=== PATIENT | female | born 1945 | race Caucasian/White ===

== ENCOUNTER 2022-08-04 10:42 | Emergency (ER) | payer MEDICARE, SELFPAY ==
[2022-08-04] VITALS (8 sets, daily range): BP systolic 103–114; BP diastolic 44–66; PULSE 65–100; RESP 16–25; TEMP 36.6–37.3; O2SAT 95–99; BMI 23.8
--- NOTE | 2022-08-04 11:27 | RAD_ITS ---
STUDY: X-RAY CHEST REASON FOR EXAM: Female, 77 years old. Fever and weakness. TECHNIQUE: PA and lateral views of the chest. COMPARISON: None. FINDINGS: Hyperinflation. Scattered calcified granulomas. There is no demonstrated pleural abnormality. Normal size heart. Normal mediastinum and quentin. Normal visualized pulmonary arteries. Normal visualized aortic arch and descending thoracic aorta. There is demineralization of the osseous structures. There is degenerative osteoarthritis of the bilateral shoulders. Matrix calcification seen overlying the right humeral neck. Moderate-sized hiatal hernia. RAD/Chest PA and Lateral IMPRESSION: Hyperinflation. Moderate-sized hiatal hernia. Images calcification seen overlying the surgical neck of the proximal right humerus. Electronically Signed: Minor Hurtado MD at 12:38 EDT ,
--- NOTE | 2022-08-04 11:59 | EDS_ITS ---
HPI History of Present Illness Chief Complaint: General Illness Informant: patient and family Onset/Context/Timing Onset: Days (5) Context: Gradual Onset Timing: Continuous Quality: Aching Location: Generalized Worsened by: Nothing Relieved by: Nothing Narrative Narrative: Patient presents with nausea, vomiting, and generalized aching that has been getting worse over the past 5 days. Patient states nothing seems to make it better nothing makes it worse. Patient states she was exposed to influenza recently. Patient states several other family members have had influenza recently. Patient admits to a fever of 100.3 at home. Patient states she has been unable to keep anything down. Family also noted a rash around her eyes that has gotten worse today. Patient denies any blurry vision or double vision. Patient denies any headaches. PFSH PFSH Medical History no medical history no medical history Home Medications amoxicillin 875 mg-potassium clavulanate 125 mg tablet 1 tab PO Q12H 08/04/22 [History Last Taken Unknown] sulfamethoxazole 800 mg-trimethoprim 160 mg tablet (Bactrim DS) 1 tab PO BID 08/04/22 [History Last Taken Unknown] Allergy/AdvReac Type Severity Reaction Status Date / Time Pork/Porcine Containing Allergy Angioedema Verified 08/04/22 11:07 Products Surgical History History of delivery Social History Smoking Status: Never smoker ROS ROS ED Constitutional Constitutional ED: Reports chills and fever(s) Eyes Eyes: Denies blurry vision or change in vision ENT ENT ED: Denies rhinorrhea or sore throat Cardiovascular Cardiovascular: Denies chest pain or palpitations Respiratory/Chest Respiratory/Chest: Denies cough or dyspnea Gastrointestinal Gastrointestinal: Reports nausea and vomiting Genitourinary Genitourinary ED: Denies dysuria or hematuria Musculoskeletal Musculoskeletal: Denies back pain or neck pain Integumentary Reports rash; Denies abscess Neurologic Neurologic: Denies headache(s) or weakness Allergic/Immunologic Allergic/Immunologic ED: Denies mouth swelling or urticaria EXAM Physical Exam Const Vital Signs: 08/04/22 10:43 08/04/22 11:10 08/04/22 11:15 Temperature 97.8 F 99.1 F Temperature Source Temporal Oral Pulse Rate 89 65 Respiratory Rate 16 18 Respiratory Effort Normal Non-Labored Respiratory Pattern Normal Blood Pressure 103/66 114/58 L Blood Pressure Mean 78 76 Pulse Ox 99 95 Oxygen Delivery Method Room Air Room Air 08/04/22 12:11 08/04/22 13:17 08/04/22 13:17 Temperature 98.5 F 98.5 F 98.5 F Temperature Source Oral Oral Oral Pulse Rate 79 71 71 Respiratory Rate 25 H 16 16 Respiratory Effort Respiratory Pattern Blood Pressure 114/44 L 108/59 L 108/59 L Blood Pressure Mean 67 75 75 Pulse Ox 98 97 97 Oxygen Delivery Method Room Air Room Air Room Air 08/04/22 14:03 08/04/22 14:07 Temperature 98.6 F Temperature Source Oral Pulse Rate 73 73 Respiratory Rate 16 16 Respiratory Effort Respiratory Pattern Blood Pressure 113/63 113/63 Blood Pressure Mean 79 79 Pulse Ox 95 95 Oxygen Delivery Method Room Air Room Air Positive well nourished and well developed General Appearance ED: well developed and NAD HEENT Reports dry mucous membranes Mouth ED: Yes dry mucous membranes Mouth: dry mucous membranes Neck supple and no JVD Resp normal respiratory effort and clear to auscultation bilaterally Cardio regular rate, regular rhythm and no murmurs GI normal to inspection, nondistended, normoactive bowel sounds and non-tender Palpation: soft Extremity normal to inspection General Extremety ED: Negative for edema or tenderness General Extremity: Negative for edema Neuro oriented x3, CN's II-XII intact bilaterally and no sensory deficits noted Sensorium / Orientation: alert Motor Exam: strength 5/5 throughout Psych mental status grossly normal Skin Skin Narrative: There is an erythematous macular rash in the periorbital areas bilaterally. There is mild warmth. There is no discharge or drainage. There are no vesicles or pustules noted. It is blanchable. There are no petechia noted. There is no involvement of the mucous membranes. MDM MDM MDM Narrative Medical decision making narrative: Differential diagnosis includes viral illness, influenza, COVID, periorbital cellulitis, orbital cellulitis, urinary tract infection, and electrolyte abnormality. CBC will be obtained to assess for leukocytosis and anemia. Basic metabolic profile will be obtained to assess for renal function and electrolyte abnormality. Urinalysis will be obtained to assess for urinary tract infection. Chest x-ray will be obtained to assess for pneumonia. COVID-19 rapid antigen will be obtained to assess for COVID-19 infection. Influenza A and influenza B antigens will be obtained to assess for influenza infection. Lab Data Attestation: I reviewed the patient's lab results. Lab results narrative: CBC was reviewed. There is a mild leukocytosis of 11.4. The remainder was within normal limits. Basic metabolic profile was reviewed. BUN was slightly elevated at 22 and creatinine was slightly elevated at 1.08. Urinalysis was reviewed. There is no evidence of urinary tract infection or hematuria. Urine ketones were 150. Labs: Laboratory Results - last 24 hr 08/04/22 08/04/22 08/04/22 11:56 11:56 13:39 WBC 11.4 H RBC 4.17 L Hgb 12.6 Hct 38.7 MCV 92.8 MCH 30.2 MCHC 32.6 RDW Std Deviation 44.3 H RDW Coeff of [place] 13.1 Plt Count 382 MPV 9.8 Immature Gran % (Auto) 0.400 Neut % (Auto) 74.9 H Lymph % (Auto) 11.6 L [place] % (Auto) 10.8 H Eos % (Auto) 1.9 Baso % (Auto) 0.4 Absolute Neuts (auto) 8.6 H Absolute Lymphs (auto) 1.32 Nucleated RBC % 0 Sodium 135 L Potassium 4.1 Chloride 102 Carbon Dioxide 23.0 Anion Gap 10 BUN 22 H Creatinine 1.08 H Estim Creat Clear Calc 36.66 Est GFR (MDRD) Af Amer 63 Est GFR (MDRD) Non-Af 52 L BUN/Creatinine Ratio 20.4 H Glucose 100 Calcium 9.3 Urine Color Yellow Urine Clarity Sl. Cloudy Urine pH 5.0 Ur Specific [place] 1.025 Urine Protein 30 H Urine Glucose (UA) Normal Urine Ketones 150 A* Urine Occult Blood 25 H Urine Nitrite Negative Urine Bilirubin Negative Urine Urobilinogen 4 H Ur Leukocyte Esterase 25 H Urine RBC 0-5 SEEN Urine WBC 0-5 SEEN Ur Squamous Epith Cells 0-5 SEEN Urine Bacteria 1+ Urine Mucus 0 SEEN Radiography Diagnostic Testing: Clinical Impression(s) from Imaging Studies Chest X-Ray 08/04/22 11:27 IMPRESSION: Hyperinflation. Moderate-sized hiatal hernia. Images calcification seen overlying the surgical neck of the proximal right humerus. Electronically Signed: Minor Hurtado MD at 12:38 EDT , PA and lateral chest x-ray was obtained. There are 2 views. On my independent interpretation, lung gómez are clear. There is normal cardiac silhouette. Bony thorax is normal. There is no acute process noted. Radiologist also interpreted the x-ray and agrees. Treatment and Re-Evaluation :: Patient was given IV fluids and Zofran here. Patient is feeling better on reevaluation. Patient was instructed to start with small amounts of liquids more frequently. Patient was instructed to advance her diet as tolerated. Patient was given a prescription for Zofran. Patient was instructed to follow- up with her primary care physician in 5 to 7 days. Patient and family understand and are agreeable with the plan. All questions were answered. Discharge Plan Triage Chief Complaint: General Illness ED Provider: Camilo Galaviz Dx/Rx/DC Orders Clinical Impression: Dehydration, Nausea and vomiting Instructions: ED Dehydration (Adult), ED Vomiting (Adult) Prescriptions: No Action sulfamethoxazole-trimethoprim [Bactrim DS] 800-160 mg Tablet 1 tab PO BID amoxicillin-pot clavulanate 875-125 mg Tablet 1 tab PO Q12H Primary Care Provider: Brandee Osorio Referrals: Brandee Osorio DO [Primary Care Provider] - 3-5 Days Disposition Disposition: Home, Self Care
[2022-08-04] MEDS: 0.9% Normal Saline 1,000 ML 1000 ML IV ×2 (12:04→14:43)
[2022-08-04] MEDS: Ondansetron 4 MG/2 ML Vial IV (12:04)
[2022-08-04 12:06] LABS: Absolute Lymphocyte Count 1.32 X10^3/uL (0.83-4.51); Absolute Neutrophil Count 8.6 X10^3/uL (2.0-7.7); Basophil# 0.05 X10^3/uL; Basophil% 0.4 % (0-1); Eosinophil# 0.22 X10^3/uL; Eosinophils% 1.9 % (0-5); Hematocrit 38.7 % (37-47); Hemoglobin 12.6 g/dL (12.0-15.0); Lymphocyte # 1.32 X10^3/ul (0.83-4.51); Lymphocyte % 11.6 % (19-41); Mean Corp Hgb Conc 32.6 g/dL (32-36); Mean Corpuscular Hgb 30.2 pg (27.0-32.0); Mean Corpuscular Volume 92.8 fL (81-99); Mean Platelet Vol. 9.8 fl (6.2-12.0); Monocyte# 1.23 X10^3/uL; Monocyte% 10.8 % (0-10); NRBC Flagged by Analyzer 0 % (0-5); Neutrophil # 8.55 X10^3/uL (2.7-7.7); Neutrophil % 74.9 % (47-70); Platelet Count 382 K/mm3 (150-450); RBC Distribution Width CV 13.1 % (11.6-14.6); RBC Distribution Width SD 44.3 fl (35.1-43.9); Red Blood Count 4.17 M/mm3 (4.2-5.4); White Blood Count 11.4 K/mm3 (4.4-11.0)
[2022-08-04 12:26] LABS: Anion Gap 10 (5-15); BUN 22 mg/dL (7-18); BUN/Creat Ratio 20.4 RATIO (10-20); Calcium,Total 9.3 mg/dL (8.5-10.1); Chloride 102 mmol/L (98-107); Creatinine, Serum 1.08 mg/dL (0.55-1.02); EST Glomerular Filtration Rate 52 mL/min (>60); Est Glom Filt Rate - Afr Amer 63 mL/min (>60); Estimated Creatinine Clearance 36.66 ml/min; Glucose 100 mg/dL (74-106); Potassium 4.1 mmol/L (3.5-5.1); Sodium Level 135 mmol/L (136-145)
[2022-08-04 13:47] LABS: Mucous, Urine 0 SEEN /hpf (<or=2+)
[2022-08-04 13:49] LABS: Color, Urine Yellow (Yellow); Glucose, Dipstick Normal (Normal); Leukocyte Esterase-Dipstick 25 /ul (Negative); Nitrite-Dipstick Negative (Negative); Occult Blood-Urine 25 /ul (Negative); Protein-Dipstick 30 mg/dl (Negative); Specific Gravity, Urine 1.025 (1.002-1.030); Urine Bilirubin Dipstick Negative (Negative); Urine Clarity Sl. Cloudy (Clear); Urine Urobilinogen 4 mg/dl (Normal)
[2022-08-04 13:52] LABS: Ketone-Dipstick 150 mg/dl (Negative)
[2022-08-04 13:57] LABS: Bacteria 1+ /hpf (None Seen); Red Blood Cells-Urine 0-5 SEEN /hpf (0-5); Squamous Epithelial Cells - UA 0-5 SEEN /hpf (5-10); White Blood Cells 0-5 SEEN /hpf (0-5)
== END 2022-08-04 17:11 | disposition home or self-care (01) ==
PROVIDERS: Emergency Provider Emergency Medicine; PCP Internal Medicine; Visit Provider Emergency Medicine
DX: R11.2 Nausea with vomiting, unspecified (principal); E86.0 Dehydration
CPT/HCPCS: 71046; 80048; 81001; 85025; 87428; 96361; 96374; 99283; J7030; A4216; J2405

== ENCOUNTER 2022-11-02 07:18 | Emergency (ER) | payer MEDICARE, SELFPAY ==
[2022-11-02 07:19] VITALS: BP 159/89; PULSE 82; RESP 16; TEMP 36.1; O2SAT 100; BMI 22.1
--- NOTE | 2022-11-02 07:36 | RAD_ITS ---
EXAM: XR THORACIC SPINE, 2 VIEWS CLINICAL INDICATION: pain TECHNIQUE: Frontal and lateral views of the thoracic spine. COMPARISON: No relevant prior studies available. FINDINGS: VERTEBRAE: No acute fracture or subluxation. Accentuated thoracic kyphosis secondary to mild chronic appearing wedge deformity of the midthoracic vertebral bodies. No focal bone lesion. DISC SPACES: Mild disc space narrowing at the midthoracic level associated with mild vertebral body osteophytosis. RAD/Thoracic Spine 2 Views IMPRESSION: No acute abnormality. Mild spondylosis. Electronically Signed: Frederick Sher MD at 8:24 EDT ,
--- NOTE | 2022-11-02 07:41 | ED.VIS.BACK ---
HPI History of Present Illness Chief Complaint: Back Informant: patient Onset/Context/Timing Onset: Days (Several) Context: Gradual Onset Narrative Narrative: Patient has had mid nonlateralizing back pain for the last couple days. She did not have any injury that she knows of, she does not recall any sudden onset severe pains, she states it started gradually and has become worse. She had a difficult night and comes in early this morning, saying that lying down seem to make it worse overnight tonight. Also overnight she has had significant urinary frequency but it has not been for the entire time her back has been bothering her. She had trouble sleeping overnight because of the pain being worse when she lies down, which is the main reason she came here to the ER this morning. She denies any dysuria, retention or incontinence, and denies any abdominal pain. No systemic symptoms such as fevers, chills, syncope. Upon initially looking at her back I see a tick on her back, and upon asking her about it she thought it was a skin tag and she noticed it may be several days ago, she states she was out on [place] property which [place], cutting down branches and stacking them this past week. As a separate issue patient states for the past 2 months or more, she has been having occasional brief lancing severe pains throughout the left side of her face. Never on the right side. Did not seem to be caused by an obvious triggers such as chewing, her dentures, touching the area, or anything else. Not present currently. No changes in her hearing or tinnitus with this, no loss of consciousness or changes in her vision. PFSH PFS Home Medications amoxicillin 875 mg-potassium clavulanate 125 mg tablet 1 tab PO Q12H 08/04/22 [History Last Taken Unknown] sulfamethoxazole 800 mg-trimethoprim 160 mg tablet (Bactrim DS) 1 tab PO BID 08/04/22 [History Last Taken Unknown] hydrocodone-acetaminophen 5-325mg 5mg-325mg 0.5 - 1 tab PO Q6H PRN PRN Pain 3 days #10 TABLETS 11/02/22 [Rx Last Taken Unknown] Allergy/AdvReac Type Severity Reaction Status Date / Time Pork/Porcine Containing Allergy Angioedema Verified 11/02/22 07:20 Products Surgical History History of delivery Social History Smoking Status: Never smoker ROS ROS ED Constitutional Constitutional ED: Denies chills, fever(s), malaise or weakness Eyes Eyes: Denies blurry vision or diplopia ENT ENT ED: Reports other Details: Occasional brief lancing pain left side of face ; Denies rhinorrhea or sore throat Cardiovascular Cardiovascular: Denies chest pain, orthopnea or palpitations Respiratory/Chest Respiratory/Chest: Denies dyspnea, dyspnea on exertion or orthopnea Gastrointestinal Gastrointestinal: Denies abdominal pain, constipation, fecal incontinence, nausea or vomiting Genitourinary Genitourinary ED: Reports urinary frequency and other Details: no urinary retention ; Denies abdominal discomfort, dysuria, hematuria or urinary incontinence Musculoskeletal Musculoskeletal: Reports as per HPI and back pain; Denies neck pain Integumentary Denies rash or wounds Neurologic Neurologic: Denies headache(s), paresthesias or weakness Psychiatric Psychiatric: Reports anxiety; Denies suicidal ideation EXAM Physical Exam Const Vital Signs: 11/02/22 07:19 Temperature 96.9 F L Temperature Source Temporal Pulse Rate 82 Respiratory Rate 16 Blood Pressure 159/89 H Blood Pressure Mean 112 Pulse Ox 100 Oxygen Delivery Method Room Air Positive well nourished and well developed General Appearance ED: well developed and NAD HEENT HEENT Narrative: Normal intraoral exam normal TMJ no parotid tenderness or discharge from Stensen's duct. Normal gingiva without tenderness or abscess or irritation with dentures removed. Negative for trauma or tenderness Eyes PERRL and EOMs intact bilaterally Neck full ROM and supple Cardio regular rate and regular rhythm Rate: Negative for tachycardic GI normal to inspection, nondistended, normoactive bowel sounds, soft to palpation and non-tender GI Narrative: No Oskar sign or [place] sign Palpation: Negative for pulsatile mass Back/Spine Back/Spine Narrative: Mild tenderness mid-lower thoracic spine in the midline but not the paraspinal areas, no palpable step-off, crepitance, or rash, this is around T9 or T10 in my estimation, there is some redness in this area that the patient states is related to a heating pad that she has been putting on it up until coming here. Additionally, there is a live tick attached separate from this area, down in her left low back. It is alive, it is not engorged but it is attached very superficially. Lumbar Spine / Lower Back: ROM limited, paraspinal muscle tenderness and straight leg raise negative bilaterally; Negative for lumbar spinal tenderness Extremity normal to inspection, full ROM and no pedal edema Neuro oriented x3 and no sensory deficits noted Neuro Narrative: No facial droop, dysarthria, aphasia Sensorium / Orientation: alert Motor Exam: strength 5/5 throughout and clonus absent Deep Tendon Reflexes: Rt Patellar (L4): 2+, Lt Patellar (L4): 2+, Rt Ankle (S1): 2+ and Lt Ankle (S1): 2+ Deep Tendon Reflexes Back: Rt Patellar (L4): 2+, Lt Patellar (L4): 2+, Rt Ankle (S1): 2+ and Lt Ankle (S1): 2+ Plantar Reflex: Downgoing: bilateral Psych mental status grossly normal and thought process normal Skin no rashes or lesions noted and no wounds MDM MDM MDM Narrative Medical decision making narrative: Obtained urinalysis given her urinary frequency and low back pain which can be radiating from bladder, it is negative for all indicators and blood cells and bacteria, essentially ruling out infection. She is tender in the midline to obtain some thoracic spine x-rays to evaluate for compression fracture, 2 views on my interpretation show age-related degenerative abnormalities of the thoracic vertebrae and disc spaces but I see no acute compression fractures. Radiology in agreement, see report below. Patient was given doxycycline 200 mg as prophylaxis against Lyme disease, which is prevalent in deer and dog ticks in this area. We do have a method to send the tick for testing for Borellia, I discussed with lab and we sent the specimen prepared as directed. With regard to the patient's pain, I think this is musculoskeletal. I do not think she needs to be scanned for vascular catastrophe is at this time, this does not seem to be retroperitoneal or abdominal pain, she has no pleuritic component or dyspnea, and she has normal 2+ symmetric pulses distally in all 4 extremities. She is offered some pain medication and follow-up as advised, for reevaluation with regards to her back as well as with regards to the redness around the tick bite area which is not indurated or indicative of acute infection, but it is common with an acute tick bite. With regards to the pain in the left side of her face, this sounds like trigeminal neuralgia. Follow-up advised. Lab Data Attestation: I reviewed the patient's lab results. Labs: Laboratory Results - last 24 hr 11/02/22 07:50 Urine Color Yellow Urine Clarity Clear Urine pH 7.0 Ur Specific [place] 1.005 Urine Protein Negative Urine Glucose (UA) Normal Urine Ketones Negative Urine Occult Blood Negative Urine Nitrite Negative Urine Bilirubin Negative Urine Urobilinogen Normal Ur Leukocyte Esterase Negative Urine RBC 0 SEEN Urine WBC 0 SEEN Ur Squamous Epith Cells 0 SEEN Urine Bacteria 0 SEEN Urine Mucus 0 SEEN Radiography Diagnostic Testing: Clinical Impression(s) from Imaging Studies Thoracic Spine X-Ray 11/02/22 07:36 IMPRESSION: No acute abnormality. Mild spondylosis. Electronically Signed: Frederick Sher MD at 8:24 EDT Reading Location ID and State: [address] [place] [address] Tel , Service support , EXAM:? XR THORACIC SPINE, 2 VIEWS CLINICAL INDICATION:? pain TECHNIQUE:? Frontal and lateral views of the thoracic spine. COMPARISON:? No relevant prior studies available. FINDINGS: VERTEBRAE:? No acute fracture or subluxation. Accentuated thoracic kyphosis secondary to mild chronic appearing wedge deformity of the midthoracic vertebral bodies. No focal bone lesion. DISC SPACES:? Mild disc space narrowing at the midthoracic level associated with mild vertebral body osteophytosis. RAD/Thoracic Spine 2 Views IMPRESSION: ? No acute abnormality. Mild spondylosis. ? Electronically Signed: Frederick Sher MD at 8:24 EDT Procedures Other Procedures Procedure(s): After prepping with isopropanol, live tick removed from low back using metal forceps at the skin level, the tick was removed almost in its entirety, with the exception of a very small speck of mouthparts left superficially in the skin. Again prepping with isopropanol I attempted to remove this with forceps but the patient said it was too painful and did not tolerate it. Dressed with bacitracin, this would likely fall out on its own with short period of time. Discharge Plan Triage Chief Complaint: Back ED Provider: Jerrod Kay Dx/Rx/DC Orders Clinical Impression: Musculoskeletal back pain, Tick bite of back Instructions: ED Back Pain (Acute or Chronic), ED Tick Bite, Abx Tx, ED Trigeminal Neuralgia Prescriptions: New hydrocodone-acetaminophen [hydrocodone-acetaminophen] 5-325 mg tablet 0.5 - 1 tab PO Q6H PRN PRN (Reason: Pain) 3 Days Qty: 10 0RF No Action sulfamethoxazole-trimethoprim [Bactrim DS] 800-160 mg Tablet 1 tab PO BID amoxicillin-pot clavulanate 875-125 mg Tablet 1 tab PO Q12H Primary Care Provider: Brandee Osorio Referrals: Brandee Osorio DO [Primary Care Provider] - 5-7 Days Disposition Disposition: Home, Self Care
[2022-11-02] MEDS: Doxycycline 100 MG CAPSULE 200 MG PO (07:49)
[2022-11-02 07:55] LABS: Bacteria 0 SEEN /hpf (None Seen); Color, Urine Yellow (Yellow); Glucose, Dipstick Normal (Normal); Ketone-Dipstick Negative (Negative); Leukocyte Esterase-Dipstick Negative /ul (Negative); Mucous, Urine 0 SEEN /hpf (<or=2+); Nitrite-Dipstick Negative (Negative); Occult Blood-Urine Negative /ul (Negative); Protein-Dipstick Negative (Negative); Red Blood Cells-Urine 0 SEEN /hpf (0-5); Specific Gravity, Urine 1.005 (1.002-1.030); Squamous Epithelial Cells - UA 0 SEEN /hpf (5-10); Urine Bilirubin Dipstick Negative (Negative); Urine Clarity Clear (Clear); Urine Urobilinogen Normal (Normal); White Blood Cells 0 SEEN /hpf (0-5)
== END 2022-11-02 08:56 | disposition home or self-care (01) ==
PROVIDERS: Emergency Provider Emergency Medicine; PCP Internal Medicine; Visit Provider Emergency Medicine
DX: M54.9 Dorsalgia, unspecified (principal); S30.860A Insect bite (nonvenomous) of lower back and pelvis, initial encounter; W57.XXXA Bitten or stung by nonvenomous insect and other nonvenomous arthropods, initial encounter; Y93.89 Activity, other specified; Y92.89 Other specified places as the place of occurrence of the external cause
CPT/HCPCS: 72070; 81001; 99283; A4216